=== PATIENT | female | born 1950 | race Caucasian/White ===

== ENCOUNTER 2016-05-07 13:40 | Emergency (ER) | payer MEDICARE, BC ==
[2016-05-07 13:53] VITALS: BP 157/87
[2016-05-07] MEDS ORDERED: DIPHTH,PERTUSS(ACELL),TET VAC 0.5 ML VIAL IM ONE ×2 (14:15→16:38)
--- NOTE | 2016-05-07 16:30 | ERNOTE ---
ENT HPI Date of Service: 05/07/16 Presenting Symptoms: other Time Seen by Provider: 05/07/16 14:05 Source: patient Exam Limitations: no limitations - Immun/Allergies/Home Medications Immunizations: IMMUNIZATION HX Immunizations Up to Date Yes History of Influenza Vaccine No Hx Pneumococcal Vaccination No Allergies/Adverse Reactions: Allergies Allergy/AdvReac Type Severity Reaction Status Date / Time codeine [Codeine] Allergy Mild Itching Verified 05/07/16 13:54 clonidine Allergy Unknown "MAKES Verified 05/07/16 13:54 FEEL WEIRD" levofloxacin [From Levaquin] AdvReac Intermediate joint pain Verified 05/07/16 13:54 acetaminophen [From Vicodin] AdvReac Mild UPSET Verified 05/07/16 13:54 STOMACH hydrocodone bitartrate AdvReac Mild UPSET Verified 05/07/16 13:54 [From Vicodin] STOMACH ibuprofen AdvReac Mild Nausea Verified 05/07/16 13:54 Home Medications: HOME MEDICATIONS Nitroglycerin [Nitrostat] 0.4 mg SL [id number] PRN 04/21/15 [Last Taken Unknown] Asenapine Maleate [Saphris] 5 mg SL HS 04/29/15 [Last Taken Unknown] Aspirin [Aspirin Chewable] 81 mg PO DAILY 10/21/15 [Last Taken Unknown] Atorvastatin Calcium [Lipitor] 80 mg PO DAILY 11/12/15 [Last Taken Unknown] Clopidogrel Bisulfate [Plavix] 75 mg PO DAILY 11/12/15 [Last Taken Unknown] Pantoprazole Sodium [Protonix] 40 mg PO DAILY 11/12/15 [Last Taken Unknown] Venlafaxine HCl [Effexor Xr] 150 mg PO DAILY 11/12/15 [Last Taken Unknown] traMADol HCL [Ultram] 50 mg PO QID PRN 01/05/16 [Last Taken Unknown] ALPRAZolam [Xanax] 1 mg PO BID 05/07/16 [Last Taken Unknown] Zolpidem Tartrate [Ambien] 5 mg PO HS 05/07/16 [Last Taken Unknown] - History of Present Illness Narrative: Just before coming to the [facility] ER, she arrived home, to have her dog accidentally knock a piece of furniture into her. It cut her left eyebrow area. She also now has a bad headache. A few days ago she fell, and injured her right posterolateral chest which has hurt since. Severity: Present: mild ENT Location: Present: eye (L) Prearrival Treatment: Present: no prearrival treatment Modifying Factors - Improves: Reports: nothing Modifying Factors - Worsens: Reports: nothing Associated Symptoms - ENT: Reports: other Prior Treament: Denies: currently on antibiotics Review of Systems - Review of Systems Constitutional: Present: no symptoms reported EYE: Present: no symptoms reported ENT: Present: no symptoms reported Respiratory: Present: no symptoms reported Cardiology: Present: no symptoms reported Gastrointestinal/Abdominal: Present: no symptoms reported Genitourinary: Present: no symptoms reported Musculoskeletal: Present: See HPI Skin: Present: See HPI Neurological: Present: no symptoms reported Endocrine: Present: no symptoms reported Hematologic/Lymphatic: Present: no symptoms reported Psych: Present: no symptoms reported All Other Systems: All systems neg except as marked - Patient's Past Medical History Patient History - Medical: Anxiety, Chronic Pain, Depression, GERD, Seizures Patient History - Cardiac/Respiratory: COPD, Hypertension, Myocardial Infarction - states 6 weeks ago Patient History - Cancer: No Hx of Cancer Patient History - Surgical Procedures: Cholecystectomy, Colon Resection, Hysterectomy, T & A - Family History Father Family History - Medical: Family History - Cardiac/Respiratory: Hypertension, Myocardial Infarction Mother Family History - Medical: Family History - Cancer: Other - unsure what type - Social History Living Situations: significant other Does anyone smoke in the home?: Yes Smoking Status: Current every day smoker Have you smoked in the past 12 months: Yes Do you dip or chew tobacco: No Patient requests Smoking Cessation Consult: No Initiate information on Smoking Cessation: No Alcohol Use: none Drug Use: none Physical Exam - Physical Exam General Appearance: Present: wd/wn, alert, no apparent distress Eye Exam: Normal inspection: bilateral, PERRL: bilateral, EOMI: bilateral, Other : left - 2 cm chevron shaped laceration in left eyebrow. Ears, Nose, Throat: Present: normal ENT inspection, hearing grossly normal Neck: Present: normal inspection, nontender Respiratory: Present: no respiratory distress, lungs clear Cardiovascular/Chest: Present: regular rate, rhythm, no murmur, other - tender right lower posterolateral ribs. Gastrointestinal/Abdominal: Present: normal bowel sounds, nontender, nondistended, no organomegaly Back Exam: Present: normal inspection, no CVA tenderness, no vertebral tenderness Extremity Exam: Present: normal inspection, no edema Neurological Exam: Present: alert, oriented, normal mood/affect, no motor/ sensory deficits Skin Exam: Present: normal color, warm/dry Lymphatic Exam: Present: no adenopathy ED Progress - Vital Signs Patient's Vital Signs:: I have reviewed the patient's vital signs. Vital Signs: Vital Signs 05/07/16 13:44 Pulse Rate 63 Respiratory 17 Rate Blood Pressure 157/87 O2 Sat by Pulse 96 Oximetry - X-Ray X-Ray #1 X-Ray: ribs Interpretation: Interp. by me - no fracture - CT/Ultrasound CT/Ultrasound Narrative: I reviewed the head CT scan report, which is non acute. - Progress/Reassessment Chief Complaint: Facial Injury Departure Clinical Impression: Laceration, Musculoskeletal pain - Departure Disposition: Home self-care Condition: Good Instructions: Musculoskeletal Pain, Laceration Care, Adult, [id number] Additional Instructions: Followup with Dr. Nunez, end of the week. Tod out end of the week. Referrals: Apurva Nunez MD [Primary Care Provider] -
== END 2016-05-07 17:00 | disposition home or self-care (01) ==
LOC: ER 13:40
PROC: 0JQ10ZZ Repair Face Subcutaneous Tissue and Fascia, Open Approach (ICD-10-PCS; principal; 2016-05-07)
DX: S01.112A Laceration without foreign body of left eyelid and periocular area, initial encounter (principal); F17.210 Nicotine dependence, cigarettes, uncomplicated; Z23 Encounter for immunization; S09.90XA Unspecified injury of head, initial encounter; R07.89 Other chest pain; W22.8XXA Striking against or struck by other objects, initial encounter; Z90.49 Acquired absence of other specified parts of digestive tract; Z90.710 Acquired absence of both cervix and uterus; K21.9 Gastro-esophageal reflux disease without esophagitis; F41.1 Generalized anxiety disorder

== ENCOUNTER 2016-05-16 09:58 | Emergency (ER) | payer MEDICARE, BC ==
[2016-05-16 10:13] VITALS: BP 149/98
== END 2016-05-16 10:27 | disposition home or self-care (01) ==
LOC: ER 09:58
DX: Z48.02 Encounter for removal of sutures (principal)

== ENCOUNTER 2017-01-16 13:12 | Emergency (ER) | payer MEDICARE, BC ==
[2017-01-16] MEDS ORDERED: NORMAL SALINE 1,000 ML IV ONE (13:42)
[2017-01-16] MEDS ORDERED: diphenhydrAMINE HCL 50 MG/ML VIAL IV ONE ×2 (13:42→16:06)
[2017-01-16] MEDS ORDERED: DICYCLOMINE HCL 10 MG/ML AMPUL IM ONE ×2 (13:43→13:53)
[2017-01-16] MEDS ORDERED: METOCLOPRAMIDE HCL 5 MG/ML VIAL IV ONE ×2 (13:43→16:07)
--- NOTE | 2017-01-16 13:49 | ERNOTE ---
Headache ER HPI - Narrative Date of Service: 01/16/17 - General Presenting Symptoms: "migraine" Time Seen by Provider: 01/16/17 13:36 Source: patient Exam Limitations: no limitations - Immun/Allergies/Home Medications Immunizations: IMMUNIZATION HX Immunizations Up to Date Yes History of Influenza Vaccine No Hx Pneumococcal Vaccination No Allergies/Adverse Reactions: Allergies codeine [Codeine] Allergy (Mild, Verified 01/16/17 13:28) Itching clonidine Allergy (Unknown, Verified 01/16/17 13:28) "MAKES FEEL WEIRD" FROM PRE-OP ORTHOPEDIC ORDERS levofloxacin [From Levaquin] Adverse Reaction (Intermediate, Verified 01/16/17 13:28) joint pain acetaminophen [From Vicodin] Adverse Reaction (Mild, Verified 01/16/17 13:28) UPSET STOMACH FROM PRE-OP ORTHOPEDIC ORDERS hydrocodone bitartrate [From Vicodin] Adverse Reaction (Mild, Verified 01/16/17 13:28) UPSET STOMACH FROM PRE-OP ORTHOPEDIC ORDERS ibuprofen Adverse Reaction (Mild, Verified 01/16/17 13:28) Nausea FROM PRE-OP ORTHOPEDIC ORDERS Home Medications: HOME MEDICATIONS Nitroglycerin [Nitrostat] 0.4 mg SL [id number] PRN 04/21/15 [Last Taken Unknown] Asenapine Maleate [Saphris] 5 mg SL HS 04/29/15 [Last Taken Unknown] Aspirin [Aspirin Chewable] 81 mg PO DAILY 10/21/15 [Last Taken Unknown] Atorvastatin Calcium [Lipitor] 80 mg PO DAILY 11/12/15 [Last Taken Unknown] Clopidogrel Bisulfate [Plavix] 75 mg PO DAILY 11/12/15 [Last Taken Unknown] Pantoprazole Sodium [Protonix] 40 mg PO DAILY 11/12/15 [Last Taken Unknown] Venlafaxine HCl [Effexor Xr] 150 mg PO DAILY 11/12/15 [Last Taken Unknown] traMADol HCL [Ultram] 50 mg PO QID PRN 01/05/16 [Last Taken Unknown] ALPRAZolam [Xanax] 1 mg PO BID 05/07/16 [Last Taken Unknown] Zolpidem Tartrate [Ambien] 5 mg PO HS 05/07/16 [Last Taken Unknown] - History of Present Illness Narrative: Pt. comes in with c/o severe headache, and diarrhea after fall yesterday. Pt. states that she fell out of bed yesterday morning and she hit her face on the floor and her nasal bridge on a boot heel. Pt. has a hx of frequent falls and generalized weakness and is supposed to ambulate with a walker but ambulates with a cane. Pt. denies any alleviating or aggravating factors but states that she takes aspirin daily. Review of Systems - Review of Systems Constitutional: Present: weakness - normal for pt.. Absent: recent illness, fever, chills, fatigue EYE: Present: no symptoms reported ENT: Present: no symptoms reported Respiratory: Present: no symptoms reported. Absent: shortness of breath, cough , wheezing Cardiology: Present: no symptoms reported. Absent: chest pain, palpitations, edema Gastrointestinal/Abdominal: Present: diarrhea, abdominal pain - BLQ cramping Musculoskeletal: Present: no symptoms reported. Absent: back pain, joint pain Skin: Present: no symptoms reported. Absent: rash, change in color Neurological: Present: headache - worst headache ever, other - forgetfullness. Absent: dizziness/light-headedness, numbness, tingling All Other Systems: All systems neg except as marked - Patient's Past Medical History Patient History - Medical: Anxiety, Chronic Pain, Depression, GERD, Seizures Patient History - Cardiac/Respiratory: Coronary Heart Disease, Hypertension, Myocardial Infarction Patient History - Cancer: No Hx of Cancer Patient History - Surgical Procedures: Cholecystectomy, Colon Resection, Hysterectomy, T & A Patient History - Other: None - Family History Father Family History - Medical: Family History - Cardiac/Respiratory: Hypertension, Myocardial Infarction Mother Family History - Medical: - Social History Living Situations: significant other Abuse History: No History of abuse Psych History: No pertinent hx Does anyone smoke in the home?: Yes Alcohol Use: none Drug Use: none - Immunizations Immunizations Up to Date: Yes Hx Pneumococcal Vaccination: No History of Influenza Vaccine: No Physical Exam - Physical Exam General Appearance: Present: wd/wn, alert, no apparent distress Head Exam: Present: normal inspection, no evidence of injury Eye Exam: Normal inspection: bilateral, PERRL: bilateral, EOMI: bilateral Ears, Nose, Throat: Present: normal except -, dry mucous membranes Neck: Present: normal inspection, nontender. Absent: lymphadenopathy (R), lymphadenopathy (L) Respiratory: Present: no respiratory distress, normal breath sounds, no accessory muscle use, chest nontender, lungs clear Cardiovascular/Chest: Present: regular rate, rhythm, no murmur, normal peripheral pulses Back Exam: Present: normal inspection, normal range of motion, no CVA tenderness , no vertebral tenderness Extremity Exam: Present: normal inspection Neurological Exam: Present: alert, oriented, normal mood/affect, other - generalized weakness Skin Exam: Present: normal color, warm/dry, other - abrasion healing bridge of nose 1cm x 1.3cm. Absent: pallor, skin rash ED Progress - Date and Time Seen: Date and Time: 01/16/17 17:[address] Joshua and as Stool negative for blood and pt. HGB is trending down but not significant will start on Iron and have pt. follow up with pcp in outpatient setting. - Results and Orders Patient's Lab Results:: I have reviewed the patient's lab results. - Vital Signs Patient's Vital Signs:: I have reviewed the patient's vital signs. Vital Signs: Vital Signs 01/16/17 13:21 Temperature 36.8 C Pulse Rate 92 Respiratory 22 H Rate Blood Pressure 107/82 O2 Sat by Pulse 98 Oximetry - X-Ray X-Ray #1 X-Ray: abdomen Interpretation: Reviewed by me X-ray Comments: stool retention throughout colon and scattered air fluid levels. - CT/Ultrasound CT/Ultrasound Narrative: CT head negative - Progress/Reassessment Chief Complaint: Headache Progress:: Improved Departure Clinical Impression: Gastroenteritis and colitis, viral Constipation Qualifiers: Constipation type: unspecified constipation type Qualified Code(s): K59.00 - Constipation, unspecified Migraine Qualifiers: Migraine type: without aura Status migrainosus presence: without status migrainosus Intractability: not intractable Qualified Code(s): G43.009 - Migraine without aura, not intractable, without status migrainosus - Departure Disposition: Home self-care Condition: Good Instructions: Viral Gastroenteritis, Adult, [id number], Constipation, Adult, [id number] Additional Instructions: Please start taking colace 100mg daily and start taking iron supplement 325 mg daily. Do not take any more antidiarrheal tablets. Referrals: Apurva Nunez MD [Primary Care Provider] -
[2017-01-16] MEDS ORDERED: diphenhydrAMINE HCL 50 MG/ML VIAL ONE ×2 (13:52→16:18)
[2017-01-16 13:53] LABS: Hematocrit 27.9 % (37.0-47.0); Hemoglobin 8.4 gm/dL (12.5-16.0); Mean Cell Volume 72.1 fl (78-100); Mean Corpuscular Hemoglobin 21.7 pg (27-31); Mean Corpuscular Hgb Conc 30.1 g/dl (32-36); Mean Platelet Volume 9.4 fl (6.0-9.5); Neutrophil # 5.8 K/mm3 (1.3-6.0); Neutrophil % 61.5 % (42-75.0); Platelet Count 532 K/mm3 (150-450); Red Blood Count 3.87 M/mm3 (4.2-5.4); Red Cell Distribution Width 23.4 % (11.5-14.0); White Blood Count 9.4 K/mm3 (4.0-10.5)
[2017-01-16] MEDS ORDERED: METOCLOPRAMIDE HCL 5 MG/ML VIAL ONE ×2 (13:53→16:18)
[2017-01-16 14:13] LABS: ALT 13 U/L (19-67); AST 21 U/L (0-48); Albumin * 3.7 gm/dl (3.4-5.0); Alkaline Phosphatase * 110 U/L (50-170); Amylase * 39 U/L (25-115); Anion Gap 16.2 mmol/L (6.8-13.8); BUN/Creatinine Ratio 13.3 (9.0-21.6); Bilirubin, Total 0.5 mg/dL (0.0-1.1); Blood Urea Nitrogen 10 mg/dL (3-23); Ca. Corrected For Albumin 8.4 mg/dL (8.4-10.2); Calcium * 8.5 mg/dL (7.9-10.9); Carbon Dioxide 23.1 mmol/L (24-32.6); Chloride 107 mmol/L (97-106); Glucose * 72 mg/dL (70-110); Lipase 101 U/L (73-393); Potassium 4.3 mmol/L (3.4-4.6); Sodium 142 mmol/L (132-142); Troponin I Less than 0.017 ng/ml (0.00-0.10)
[2017-01-16 14:16] LABS: INR 1.15 INR (0.90-1.10); Partial Thrombolplastin Time 25.7 Seconds (24-32)
[2017-01-16 15:28] LABS: Urine Bilirubin Negative (NEGATIVE); Urine Blood Negative /ul (NEGATIVE); Urine Ketone Negative (NEGATIVE); Urine Nitrite Negative (NEGATIVE); Urine Protein Negative (NEGATIVE); Urine Specific Gravity <=1.005 SP.GR. (1.005-1.010); Urine Urobilinogen Normal (NORMAL); Urine pH 5.5 pH (5.0-7.0)
[2017-01-16 15:30] VITALS: BP 140/82
[2017-01-16 15:44] LABS: Urine Appearance Slightly Cloudy; Urine Bacteria 2+; Urine Color Yellow; Urine RBC None Seen /hpf (0-5); Urine WBC 0-5 /hpf (0-5)
[2017-01-16] MEDS ORDERED: KETOROLAC TROMETHAMINE 30 MG/ML VIAL IV ONE (16:06)
[2017-01-16] MEDS ORDERED: KETOROLAC TROMETHAMINE 30 MG/ML VIAL ONE (16:18)
== END 2017-01-16 17:43 | disposition home or self-care (01) ==
LOC: ER 13:12
DX: K52.9 Noninfective gastroenteritis and colitis, unspecified (principal); K59.00 Constipation, unspecified; G43.009 Migraine without aura, not intractable, without status migrainosus

== ENCOUNTER 2017-04-08 10:13 | Emergency (ER) | payer MEDICARE, BC ==
[2017-04-08 10:33] VITALS: BP 143/98
--- NOTE | 2017-04-08 10:47 | ERNOTE ---
Abdominal HPI - General Chief Complaint: Constipation Time Seen by Provider: 04/08/17 10:40 Source: patient Exam Limitations: no limitations - Immun/Allergies/Home Medications Immunizatons: IMMUNIZATION HX Immunizations Up to Date Yes History of Influenza Vaccine No Hx Pneumococcal Vaccination No Allergies/Adverse Reactions: Allergies codeine [Codeine] Allergy (Mild, Verified 04/08/17 10:33) Itching clonidine Allergy (Unknown, Verified 04/08/17 10:33) "MAKES FEEL WEIRD" FROM PRE-OP ORTHOPEDIC ORDERS levofloxacin [From Levaquin] Adverse Reaction (Intermediate, Verified 04/08/17 10:33) joint pain acetaminophen [From Vicodin] Adverse Reaction (Mild, Verified 04/08/17 10:33) UPSET STOMACH FROM PRE-OP ORTHOPEDIC ORDERS hydrocodone bitartrate [From Vicodin] Adverse Reaction (Mild, Verified 04/08/17 10:33) UPSET STOMACH FROM PRE-OP ORTHOPEDIC ORDERS ibuprofen Adverse Reaction (Mild, Verified 04/08/17 10:33) Nausea FROM PRE-OP ORTHOPEDIC ORDERS Home Medications: HOME MEDICATIONS Nitroglycerin [Nitrostat] 0.4 mg SL [id number] PRN 04/21/15 [Last Taken Unknown] Asenapine Maleate [Saphris] 5 mg SL HS 04/29/15 [Last Taken Unknown] Aspirin [Aspirin Chewable] 81 mg PO DAILY 10/21/15 [Last Taken Unknown] Atorvastatin Calcium [Lipitor] 80 mg PO DAILY 11/12/15 [Last Taken Unknown] Clopidogrel Bisulfate [Plavix] 75 mg PO DAILY 11/12/15 [Last Taken Unknown] Pantoprazole Sodium [Protonix] 40 mg PO DAILY 11/12/15 [Last Taken Unknown] Venlafaxine HCl [Effexor Xr] 75 mg PO DAILY 11/12/15 [Last Taken Unknown] traMADol HCL [Ultram] 50 mg PO QID PRN 01/05/16 [Last Taken Unknown] ALPRAZolam [Xanax] 1 mg PO BID 05/07/16 [Last Taken Unknown] Zolpidem Tartrate [Ambien] 5 mg PO HS 05/07/16 [Last Taken Unknown] Ferrous Sulfate 325 mg PO DAILY 04/08/17 [Last Taken Unknown] Metoprolol Tartrate [Lopressor] 25 mg PO DAILY 04/08/17 [Last Taken Unknown] lamoTRIgine [Lamictal Xr] 200 mg PO DAILY 04/08/17 [Last Taken Unknown] - History of Present Illness Narrative: Patient had been constipated for approximately a week so last Sunday she took some medicine to try to loosen up her bowels and she states it worked too well. She has had roughly 11 loose stools over the last 4-5 days and is now frustrated that her bowels are too loose. She has not tried anything significant at home to aid her and shows up here looking for solutions. Timing: intermittent Quality: moderate Associated Symptoms: Present: other - cramping like abdominal pain Prior Abdominal Problems: Present: similar symptoms Review of Systems - Review of Systems Constitutional: Present: See HPI EYE: Present: no symptoms reported ENT: Present: no symptoms reported Respiratory: Present: no symptoms reported Cardiology: Present: no symptoms reported Gastrointestinal/Abdominal: Present: See HPI Genitourinary: Present: no symptoms reported Musculoskeletal: Present: no symptoms reported Skin: Present: no symptoms reported Neurological: Present: no symptoms reported Endocrine: Present: no symptoms reported Hematologic/Lymphatic: Present: no symptoms reported Psych: Present: no symptoms reported - Patient's Past Medical History Patient History - Medical: Anxiety, Chronic Pain, Depression, GERD, Seizures Patient History - Cardiac/Respiratory: Coronary Heart Disease, Hypertension, Myocardial Infarction Patient History - Cancer: No Hx of Cancer Patient History - Surgical Procedures: Cholecystectomy, Colon Resection, Hysterectomy, T & A Patient History - Other: None - Family History Father Family History - Medical: Family History - Cardiac/Respiratory: Hypertension, Myocardial Infarction Mother Family History - Medical: - Social History Living Situations: home Abuse History: No History of abuse Psych History: No pertinent hx - Immunizations Immunizations Up to Date: Yes Hx Pneumococcal Vaccination: No History of Influenza Vaccine: No Physical Exam - Physical Exam General Appearance: Present: wd/wn, alert, no apparent distress Head Exam: Present: normal inspection, no evidence of injury Eye Exam: Normal inspection: bilateral, PERRL: bilateral Ears, Nose, Throat: Present: normal ENT inspection, H, normal pharynx Neck: Present: normal inspection, nontender Respiratory: Present: no respiratory distress, normal breath sounds, no accessory muscle use, chest nontender, lungs clear Cardiovascular/Chest: Present: no murmur, normal peripheral pulses, tachycardia Gastrointestinal/Abdominal: Present: nondistended, soft, no organomegaly, tenderness - mild generalized tenderness, abnormal bowel sounds - slightly hyperactive Rectal Exam: Present: deferred Back Exam: Present: normal inspection, normal range of motion Extremity Exam: Present: normal inspection, non-tender, no edema, normal range of motion Neurological Exam: Present: alert, oriented, normal mood/affect Skin Exam: Present: normal color, warm/dry Lymphatic Exam: Present: no adenopathy ED Progress - Vital Signs Patient's Vital Signs:: I have reviewed the patient's vital signs. Vital Signs: Vital Signs 04/08/17 10:26 Temperature 36.9 C Pulse Rate 109 H Respiratory 12 Rate Blood Pressure 143/98 O2 Sat by Pulse 96 Oximetry - Progress/Reassessment Chief Complaint: Constipation Plan - Plan Plan: Patient was given 30 mL some Pepto-Bismol and was told to take 30 mL's at home every time she has a loose stool. Patient has chronic back pain and has tramadol at home and will continue with that medication as well as all of her other medications. She was counseled about the overuse of medications for constipation and the likely outcome of diarrhea as evidenced by her current condition. Patient agrees to see her family physician this week and she was sent home with remainder of the bottle of Pepto-Bismol for home use. Departure Clinical Impression: Constipation by delayed colonic transit Chronic lower back pain Qualifiers: Back pain laterality: unspecified Sciatica presence: without sciatica Qualified Code(s): M54.5 - Low back pain; G89.29 - Other chronic pain; G89.29 - Other chronic pain Diarrhea Qualifiers: Diarrhea type: unspecified type Qualified Code(s): R19.7 - Diarrhea, unspecified - Departure Disposition: Home self-care Condition: Good Instructions: Diarrhea, Adult, [id number], Constipation, Adult, [id number] , Chronic Back Pain Additional Instructions: See Dr. Nunez this week Referrals: Apurva Nunez MD [Primary Care Provider] -
[2017-04-08] MEDS ORDERED: BISMUTH SUBSALICYLATE 237 ML BTL PO ONE (11:00)
== END 2017-04-08 11:20 | disposition home or self-care (01) ==
LOC: ER 10:13
DX: K59.01 Slow transit constipation (principal); M54.5 Low back pain; G89.29 Other chronic pain; R19.7 Diarrhea, unspecified; F41.9 Anxiety disorder, unspecified; F32.9 Major depressive disorder, single episode, unspecified; I10 Essential (primary) hypertension; I50.9 Heart failure, unspecified; K21.9 Gastro-esophageal reflux disease without esophagitis; I25.2 Old myocardial infarction